=== PATIENT | male | born 1965 | race Caucasian/White ===

== ENCOUNTER 2020-09-09 08:07 | Observation (INO) ==
[2020-09-09] MEDS ORDERED: Aspirin 81 MG TAB.CHEW PO STA (08:28)
[2020-09-09] MEDS ORDERED: Nitroglycerin 0.4 MG TAB.SUBL SL PRN (08:28)
[2020-09-09 08:44] LABS: Basophils # 0.1 K/mcL (0.0-0.2); Basophils % 0.5 %; Eosinophils # 0.4 K/mcL (0.0-0.6); Eosinophils % 2.1 %; Hemoglobin 13.8 g/dL (12.9-16.9); Immature Granulocytes % 0.9 % (0-4); Lymphocytes # 2.2 K/mcL (0.6-4.6); Lymphocytes % 13.1 %; Mean Corpuscular HGB Conc 35.4 g/dL (31.6-35.5); Mean Corpuscular Hemoglobin 29.7 pg (28.0-33.3); Mean Corpuscular Volume 84.1 fL (83.0-100.0); Mean Platelet Volume 9.6 fL (9.4-12.4); Monocytes % 5.8 %; Neutrophils # 13.3 K/mcL (1.6-8.9); Platelet Count 197 K/mcL (140-400); Red Blood Count 4.64 M/mcL (4.19-5.50); Red Cell Distribution Width 13.7 % (11.5-14.5); Segmented Neutrophils % 77.6 %; White Blood Count 17.2 K/mcL (4.3-11.1)
[2020-09-09 08:52] LABS: Prothrombin Time 11.5 Seconds (9.4-12.1)
[2020-09-09 08:55] LABS: Activated Partial Thrombo Time 25.8 Seconds (26.0-36.0)
[2020-09-09 09:04] LABS: BUN/Creatinine Ratio 11 (6-26); Blood Urea Nitrogen 31 mg/dL (6-20); Calcium 8.6 mg/dL (8.6-10.3); Carbon Dioxide 28 mEq/L (23-29); Chloride 93 mEq/L (98-107); Glucose 387 mg/dL (70-105); Osmolality,Calculated 295 (280-300); Potassium 3.2 mEq/L (3.5-5.1); Sodium 131 mEq/L (136-145); eGFR For African Americans 27 (> 60); eGFR For Non-African Americans 23 (> 60)
[2020-09-09 09:05] LABS: Troponin I < 0.03 ng/mL (< 0.04)
[2020-09-09] MEDS ORDERED: Potassium Effervescent 25 MEQ TABLET.EFF PO ONE (09:49)
[2020-09-09] MEDS ORDERED: Ondansetron 4 MG/2 ML VIAL IVP PRN (11:25)
[2020-09-09] MEDS ORDERED: Naloxone 0.4 MG/ML INJ IVP PRN (11:25)
[2020-09-09] MEDS ORDERED: *HR* Dextrose 50 % in Water (Vial) 50 ML VIAL IVP PRN (11:28)
[2020-09-09] MEDS ORDERED: Dextrose Gel 15 GM/37.5 ML TUBE PO PRN ×2 (11:28)
[2020-09-09] MEDS ORDERED: D5% in Water 1,000 ML IVC PRN (11:28)
[2020-09-09] MEDS: Insulin LISPRO 300 UNITS/3 ML VIAL SUBQ SCH ×2 (11:46→17:32)
[2020-09-09] MEDS: hydrALAZINE 10 MG TABLET PO SCH ×2 (14:14→19:09)
[2020-09-09] MEDS ORDERED: Furosemide 20 MG TABLET PO SCH (17:00)
[2020-09-09] MEDS: Insulin DETEMIR 100 UNIT/ML X5UNITS SUBQ SCH (19:10)
[2020-09-10] MEDS: Insulin LISPRO 300 UNITS/3 ML VIAL SUBQ SCH ×5 (03:53→20:40)
[2020-09-10] MEDS ORDERED: Regadenoson 0.4 MG/5 ML SYRINGE IVP ONE (06:12)
[2020-09-10 07:02] LABS: Basophils # 0.1 K/mcL (0.0-0.2); Basophils % 0.5 %; Eosinophils # 0.3 K/mcL (0.0-0.6); Eosinophils % 2.3 %; Hematocrit 38.9 % (37.5-50.1); Hemoglobin 13.6 g/dL (12.9-16.9); Immature Granulocytes % 0.7 % (0-4); Lymphocytes # 2.7 K/mcL (0.6-4.6); Lymphocytes % 23.9 %; Mean Corpuscular Hemoglobin 29.6 pg (28.0-33.3); Mean Corpuscular Volume 84.6 fL (83.0-100.0); Mean Platelet Volume 10.3 fL (9.4-12.4); Monocytes # 0.7 K/mcL (0.0-1.3); Neutrophils # 7.5 K/mcL (1.6-8.9); Platelet Count 197 K/mcL (140-400); Red Cell Distribution Width 13.7 % (11.5-14.5); Segmented Neutrophils % 66.6 %; White Blood Count 11.2 K/mcL (4.3-11.1)
[2020-09-10 07:17] LABS: BUN/Creatinine Ratio 12 (6-26); Blood Urea Nitrogen 36 mg/dL (6-20); Calcium 8.7 mg/dL (8.6-10.3); Carbon Dioxide 28 mEq/L (23-29); Chloride 98 mEq/L (98-107); Chol/HDL Ratio 6.4 (0-4.9); Cholesterol 159 mg/dL (< 200); Glucose 232 mg/dL (70-105); HDL Cholesterol 25 mg/dL (40-59); Magnesium 2.2 mg/dL (1.6-2.6); Osmolality,Calculated 296 (280-300); Sodium 135 mEq/L (136-145); Triglycerides 488 mg/dL (< 150); eGFR For African Americans 28 (> 60); eGFR For Non-African Americans 23 (> 60)
[2020-09-10] MEDS: Aspirin 81 MG TAB.CHEW PO SCH (10:16)
[2020-09-10] MEDS: Famotidine 20 MG TABLET PO SCH (10:16)
[2020-09-10] MEDS: hydrALAZINE 10 MG TABLET PO SCH ×3 (10:17→20:39)
[2020-09-10] MEDS ORDERED: Perflutren Lipid Microsphere 1.3 ML in 0.9 % Sodium Chloride 8.7 ML IVP PRN (15:20)
[2020-09-10] MEDS: carvediloL 25 MG TABLET PO SCH (17:19)
[2020-09-10] MEDS: Insulin DETEMIR 100 UNIT/ML X5UNITS SUBQ SCH (20:41)
[2020-09-11 07:36] LABS: Basophils # 0.1 K/mcL (0.0-0.2); Basophils % 0.6 %; Eosinophils # 0.2 K/mcL (0.0-0.6); Eosinophils % 2.2 %; Hematocrit 39.3 % (37.5-50.1); Hemoglobin 13.3 g/dL (12.9-16.9); Immature Granulocytes % 0.9 % (0-4); Lymphocytes # 2.5 K/mcL (0.6-4.6); Lymphocytes % 24.5 %; Mean Corpuscular HGB Conc 33.8 g/dL (31.6-35.5); Mean Corpuscular Volume 88.5 fL (83.0-100.0); Monocytes # 0.7 K/mcL (0.0-1.3); Neutrophils # 6.6 K/mcL (1.6-8.9); Platelet Count 191 K/mcL (140-400); Red Blood Count 4.44 M/mcL (4.19-5.50); Red Cell Distribution Width 13.8 % (11.5-14.5); Segmented Neutrophils % 64.8 %; White Blood Count 10.2 K/mcL (4.3-11.1)
[2020-09-11 07:55] LABS: Calcium 8.7 mg/dL (8.6-10.3); Potassium 3.4 mEq/L (3.5-5.1)
[2020-09-11] MEDS: Famotidine 20 MG TABLET PO SCH (08:15)
[2020-09-11] MEDS: Insulin LISPRO 300 UNITS/3 ML VIAL SUBQ SCH ×2 (08:15→12:24)
[2020-09-11] MEDS: carvediloL 25 MG TABLET PO SCH (08:15)
[2020-09-11] MEDS: Aspirin 81 MG TAB.CHEW PO SCH (08:15)
[2020-09-11] MEDS: hydrALAZINE 10 MG TABLET PO SCH (08:16)
[2020-09-11 11:04] VITALS: BP 181/91
== END 2020-09-11 19:41 | disposition home or self-care (01) ==
LOC: EMEROOARM 08:07 → CDU 08:07 → SUATTDRO 11:46 → CDU 12:15 → 3BNU 16:21
PROVIDERS: ADMIT Family Medicine; ATTEND Registered Nurse